=== PATIENT | male | born 1935 | race Caucasian/White ===

== ENCOUNTER 2016-12-13 00:48 | Emergency (ER) | payer OTHER ==
[~2016-12-13] VITALS: Ht 167.6 cm; Wt 88.7 kg
[~2016-12-13 00:48] MED LIST: AGGRENOX1 CAPSULE PO; ALREX 0.2%100 DROP/5 BOTH EYES; ARTIFICIAL TEAR1510 BOTH EYES; ASCORBIC ACID500 M3 PO; ASPIR-LOW81 MG PO; CALCIUM 500 +1 EACH PO; CELEBREX200 MG PO; CITALOPRAM HBR20 MG PO; CLONAZEPAM1 MG PO; COUMADIN2.5 MG PO; COUMADIN5 MG PO; CYANOCOBALAM1000 MCG PO; FISH OIL 1,2001 EAC4 PO; IRON325 M1 PO; LIDOCAINE700 MG TD; LIPITOR80 MG PO; LITE COAT ASPI325 M1 PO; LORATADINE10 M2 PO; METOPROLOL SUCC25 MG PO; MOBIC7.5 MG PO; NASAL DECONGEST30 MG PO; NASONEX17 GM BOTH NARES; PHARMACIST FAV1 EACH PO; ROPINIROLE HCL3 MG PO; ROXICET 5-3251 EACH PO; STOOL SOFTENER1 EAC1 PO; TAMSULOSIN HCL0.4 MG PO; TYLENOL EXTRA500 MG PO; VISTARIL25 MG PO
[2016-12-13 01:26] LABS: ADD MIUA? NO; BILIRUBIN NEGATIVE; BLOOD NEGATIVE; COLOR YELLOW ((YELLOW)); GLUCOSE (STRIP) NEGATIVE; KETONES NEGATIVE; LEUKOCYTES NEGATIVE; NITRITE NEGATIVE; PROTEIN (STRIP) 30; UCUL ADDED? NO; UROBILINOGEN 0.2 MG/DL (0.2-1.0)
[2016-12-13 02:37] LABS: HEMATOCRIT 37.3 % (38.0-50.0); MCHC 33.2 G/DL (30.0-36.0); MCV 93.3 FL (86-99); MEAN PLAT.VOLUME 10.8 uM^3 (9.0-12.4); PLATELET COUNT 194 K/uL (156-360); RBC DIS.WIDTH-CV 11.9 % (11.8-14.6); RBC DIS.WIDTH-SD 41.2 % (39-53)
[2016-12-13 02:47] LABS: CHLORIDE 106 mEq/L (99-109); SODIUM 144 mEq/L (136-147)
[2016-12-13 02:49] LABS: GLUCOSE 101 mg/dL (70-99)
[2016-12-13 02:51] LABS: ANION GAP 9 MEQ/L (2-14)
[2016-12-13 02:53] LABS: GFR ESTIMATE (CALCULATED) > 59 mL/min/
[2016-12-13 02:54] LABS: UREA NITROGEN (BUN) 26 mg/dL (9-23)
[2016-12-13] MEDS ORDERED: OXAYDO5 MG PO (03:02)
[2016-12-13 03:18] VITALS: BP 125/63
== END 2016-12-13 03:19 | disposition home or self-care (01) ==
LOC: EXP 00:48 → EME 00:48 → EXP 03:19
PROVIDERS: Physician Assistant
DX: G89.29 Other chronic pain (principal); M25.551 Pain in right hip; R06.02 Shortness of breath; M54.5 Low back pain; Z96.641 Presence of right artificial hip joint; S22.41XA Multiple fractures of ribs, right side, initial encounter for closed fracture; W11.XXXA Fall on and from ladder, initial encounter
CPT/HCPCS: 71020; 72131; 73502; 80048; 81003; 85027; 99281; 99284; J3010

== ENCOUNTER 2017-11-10 12:13 | Observation (INO) | payer OTHER ==
[~2017-11-10] VITALS: Ht 170.2 cm; Wt 84.0 kg
[~2017-11-10 12:13] MED LIST changes: +COLACE100 MG PO; +DAILY VITAMIN1 EAC4 PO; +OXAYDO5 MG PO; -PHARMACIST FAV1 EACH PO; -STOOL SOFTENER1 EAC1 PO
[2017-11-10 13:55] LABS: HEMATOCRIT 38.1 % (38.0-50.0); MCH 31.4 PG (29.0-34.0); MCHC 34.1 G/DL (30.0-36.0); PLATELET COUNT 222 K/uL (156-360); RBC DIS.WIDTH-CV 12.6 % (11.8-14.6); RBC DIS.WIDTH-SD 42.1 % (39-53); RED BLOOD COUNT 4.14 M/uL (4.00-5.50); WHITE BLOOD COUNT 4.7 K/uL (4.1-10.2)
[2017-11-10 14:06] LABS: CHLORIDE 107 mEq/L (99-109); POTASSIUM 3.9 mEq/L (3.7-5.4); SODIUM 141 mEq/L (136-147)
[2017-11-10 14:07] LABS: GLUCOSE 91 mg/dL (70-99)
[2017-11-10 14:11] LABS: CREATININE 0.8 mg/dL (0.6-1.3); GFR ESTIMATE (CALCULATED) > 59 mL/min/ (58.99-99999)
[2017-11-10 14:12] LABS: UREA NITROGEN (BUN) 20 mg/dL (9-23)
[2017-11-10 15:07] LABS: TROP-I INTERPRETATION NEGATIVE; TROPONIN-I 0.02 ng/mL (0.0-0.30)
[2017-11-10] MEDS ORDERED: TYLENOL EXTRA500 MG PO (15:40)
[2017-11-10] MEDS ORDERED: FINASTERIDE5 MG PO (15:41)
[2017-11-10] MEDS ORDERED: ASTEPRO 0.15%30 ML BOTH NARES (15:41)
[2017-11-10] MEDS ORDERED: IPRATROPIUM BRO30 ML BOTH NARES (15:41)
[2017-11-10] MEDS ORDERED: LITE COAT ASPI325 M1 PO (15:41)
[2017-11-10 17:26] VITALS: BP 120/68
[2017-11-10 20:00] VITALS: BP 142/74
[2017-11-10 21:22] LABS: TROP-I INTERPRETATION NEGATIVE; TROPONIN-I 0.02 ng/mL (0.0-0.30)
[2017-11-10 23:59] VITALS: BP 135/70
[2017-11-11 03:24] LABS: TROP-I INTERPRETATION NEGATIVE; TROPONIN-I 0.01 ng/mL (0.0-0.30)
[2017-11-11 04:35] VITALS: BP 138/67
[2017-11-11 06:56] VITALS: BP 116/62
[2017-11-11 11:59] VITALS: BP 121/71
[2017-11-11] MEDS ORDERED: METOPROLOL SUCC25 MG PO (15:09)
== END 2017-11-11 16:11 | disposition home or self-care (01) ==
LOC: RME 12:13 → EME 12:13 → 4SOUTH 15:48 → EDOF 15:48 → ENRESERV 15:53 → 5WEST 16:51 → ENRESERV 11-11 07:25 → 4SOUTH 11-11 07:36
PROVIDERS: Nurse Practitioner Adult Health; Physician Assistant
PROC: B246ZZZ Ultrasonography of Right and Left Heart (ICD-10-PCS; principal; 2017-11-11)
DX: R55 Syncope and collapse (principal); Z95.0 Presence of cardiac pacemaker; I49.5 Sick sinus syndrome; R07.9 Chest pain, unspecified; I65.22 Occlusion and stenosis of left carotid artery; I25.10 Atherosclerotic heart disease of native coronary artery without angina pectoris; Z95.1 Presence of aortocoronary bypass graft; I08.1 Rheumatic disorders of both mitral and tricuspid valves; I27.20 Pulmonary hypertension, unspecified; I10 Essential (primary) hypertension; G47.33 Obstructive sleep apnea (adult) (pediatric); H40.9 Unspecified glaucoma; H91.93 Unspecified hearing loss, bilateral; R42 Dizziness and giddiness; F41.9 Anxiety disorder, unspecified; M19.90 Unspecified osteoarthritis, unspecified site; Z82.49 Family history of ischemic heart disease and other diseases of the circulatory system; Z82.3 Family history of stroke; Z88.0 Allergy status to penicillin; Z91.040 Latex allergy status; Z88.8 Allergy status to other drugs, medicaments and biological substances; Z79.82 Long term (current) use of aspirin
CPT/HCPCS: 70450; 71046; 80048; 84484; 85027; 93005; 93306; 93880; 99281; 99284; G0378; J7030

== ENCOUNTER 2018-03-02 21:12 | Emergency (ER) | payer OTHER ==
[~2018-03-02] VITALS: Ht 170.2 cm; Wt 95.4 kg
[~2018-03-02 21:12] MED LIST changes: +ASTEPRO 0.15%30 ML BOTH NARES; +FINASTERIDE5 MG PO; +IPRATROPIUM BRO30 ML BOTH NARES
[2018-03-02 23:08] VITALS: BP 147/81
== END 2018-03-02 23:09 | disposition home or self-care (01) ==
LOC: EME 21:12
DX: H74.03 Tympanosclerosis, bilateral (principal); Z88.0 Allergy status to penicillin
CPT/HCPCS: 99281; 99283